=== PATIENT | female | born 1950 | race Caucasian/White ===

== ENCOUNTER 2021-07-22 19:57 | Emergency (ER) | payer MEDICARE, BC ==
[~2021-07-22] VITALS: Ht 172.7 cm; Wt 75.0 kg
[2021-07-22 20:00] VITALS: BP 158/78
--- NOTE | 2021-07-22 21:12 | NUR ---
patient back from radiology
--- NOTE | 2021-07-22 21:53 | NUR ---
patient up for recheck, patient resting in room with no needs at this time.
--- NOTE | 2021-07-22 22:14 | NUR ---
erp at bedside, updating for d/c
== END 2021-07-22 22:38 | disposition home or self-care (01) ==
LOC: EDBD 19:57 → ED 21:45
DX: S16.1XXA Strain of muscle, fascia and tendon at neck level, initial encounter (principal); S63.521A Sprain of radiocarpal joint of right wrist, initial encounter; S80.01XA Contusion of right knee, initial encounter; S09.8XXA Other specified injuries of head, initial encounter; W01.0XXA Fall on same level from slipping, tripping and stumbling without subsequent striking against object, initial encounter; Y93.89 Activity, other specified; Y92.89 Other specified places as the place of occurrence of the external cause; Y99.8 Other external cause status
CPT/HCPCS: 70450; 72125; 99285